=== PATIENT | male | born 1980 | race African-American/Black ===

== ENCOUNTER 2023-12-28 13:23 | Emergency (ER) | payer SELFPAY ==
--- NOTE | 2023-12-28 15:17 | RAD REPORT ---
EXAMINATION: Lumbar Spine 3 Views CLINICAL INDICATION: Back pain FINDINGS: No fracture or dislocation seen Moderate amount of stool within the colon
[2023-12-28] MEDS ORDERED: METHYLPREDNISOLONE 125 MG INJ ONE (16:00)
[2023-12-28] MEDS ORDERED: KETOROLAC 30 MG/ML INJ ONE ×2 (16:01→16:07)
--- NOTE | 2023-12-28 16:15 | EDPHYS ---
Physician Documentation [facility] Name: Chris Pratt Age: 43 yrs Sex: Male : 1980 Arrival Date: 12/28/2023 Time: 13:23 Bed 9 Private MD: ED Physician Diane Eduardo HPI: 12/27 16:12 This 43 yrs old Black Male presents to ER via Wheelchair with complaints of Low Back sp3 Pain. 16:12 43-year-old male with history of asthma and prior low back strain now presents to the 3 ED for low back pain across his entire lower back after lifting and playing with his dog. He denies any loss of bowel or bladder control, distal numbness or tingling, neurological symptoms, intra-abdominal pain, chest pain, shortness of breath, headache or any other signs or symptoms on ROS at this time.. Historical: - Allergies: 13:50 No Known Allergies; cm10 - Home Meds: 15:57 None [Active]; tl4 - PMHx: 13:50 Asthma; cm10 - PSHx: 13:50 None; cm10 - Immunization history:: Adult Immunizations up to date. - Infectious Disease History:: Denies. - Social history:: Smoking status: Patient/guardian denies using tobacco. ROS: 16:13 Constitutional: Negative for fever, chills, and weight loss, Eyes: Negative for injury, sp3 pain, redness, and discharge, ENT: Negative for injury, pain, and discharge, Neck: Negative for injury, pain, and swelling, Cardiovascular: Negative for chest pain, palpitations, and edema, Respiratory: Negative for shortness of breath, cough, wheezing, and pleuritic chest pain, Abdomen/GI: Negative for abdominal pain, nausea, vomiting, diarrhea, and constipation, : Negative for injury, bleeding, discharge, and swelling, MS/Extremity: Negative for injury and deformity, Skin: Negative for injury, rash, and discoloration, Neuro: Negative for headache, weakness, numbness, tingling, and seizure, Psych: Negative for depression, anxiety, suicide ideation, homicidal ideation, and hallucinations, Allergy/Immunology: Negative for hives, rash, and allergies, Endocrine: Negative for neck swelling, polydipsia, polyuria, polyphagia, and marked weight changes, Hematologic/Lymphatic: Negative for swollen nodes, abnormal bleeding, and unusual bruising, 16:13 All other systems are negative, Exam: 16:13 Constitutional: This is a well developed, well nourished patient who is awake, alert, sp3 and in no acute distress. Head/Face: Normocephalic, atraumatic. Eyes: Pupils equal round and reactive to light, extra-ocular motions intact. Lids and lashes normal. Conjunctiva and sclera are non-icteric and not injected. Cornea within normal limits. Periorbital areas with no swelling, redness, or edema. Neck: Trachea midline, no thyromegaly or masses palpated, and no cervical lymphadenopathy. Supple, full range of motion without nuchal rigidity, or vertebral point tenderness. No Meningismus. Chest/axilla: Normal chest wall appearance and motion. Nontender with no deformity. No lesions are appreciated. Cardiovascular: Regular rate and rhythm with a normal S1 and S2. No gallops, murmurs, or rubs. Normal PMI, no JVD. No pulse deficits. Respiratory: Lungs have equal breath sounds bilaterally, clear to auscultation and percussion. No rales, rhonchi or wheezes noted. No increased work of breathing, no retractions or nasal flaring. Abdomen/GI: Soft, non-tender, with normal bowel sounds. No distension or tympany. No guarding or rebound. No evidence of tenderness throughout. Skin: Warm, dry with normal turgor. Normal color with no rashes, no lesions, and no evidence of cellulitis. MS/ Extremity: Pulses equal, no cyanosis. Neurovascular intact. Full, normal range of motion. Neuro: Awake and alert, GCS 15, oriented to person, place, time, and situation. Cranial nerves II-XII grossly intact. Motor strength 5/5 in all extremities. Sensory grossly intact. Cerebellar exam normal. Normal gait. Psych: Awake, alert, with orientation to person, place and time. Behavior, mood, and affect are within normal limits. 16:13 Back: Pain to palpation along musculature of the lower back. No pain to the bones or step-offs noted., Vital Signs: 13:49 BP 134 / 82; Pulse 93; Resp 16; Temp 98.5; Pulse Ox 100% on R/A; Weight 105.23 kg; cm10 Height 5 ft. 8 in. ; Pain 10/10; 16:17 BP 129 / 77; Pulse 85; Resp 18; Temp 98.2(O); Pulse Ox 100% on R/A; Pain 8/10; tl4 13:49 Body Mass Index 35.28 (105.23 kg, 172.72 cm) cm10 13:49 Pain Scale: Adult cm10 16:17 Pain Scale: Adult tl4 MDM: 13:38 Medical Screening Exam initiated sp3 16:13 Data reviewed: vital signs, nurses notes, radiologic studies. ED course: 43-year-old sp3 male with low back pain. Considerations include muscle strain, disc disease, fascial strain, among others. X-ray demonstrates no bony abnormality or loss of vertebral disc heights. Will administer ketorolac and Solu-Medrol IM and discharge patient home on Flexeril and p.o. diclofenac. Follow-up with PCP as needed.. 12/27 14:05 Order name: Lumbar Spine (3 Views) XRAY; Complete Time: 15:52 sp3 Administered Medications: 16:00 Drug: MethylPREDNISolone Sodium Succinate IM 125 mg IM once Route: IM; Site: left tl4 ventrogluteal; 16:33 Follow up: Response: No adverse reaction tl4 16:11 Drug: Ketorolac IM 60 mg IM once Route: IM; Site: right ventrogluteal; tl4 16:33 Follow up: Response: No adverse reaction tl4 Disposition Summary: 12/28/23 16:15 Discharge Ordered Notes: Location: Home sp3 Condition: Stable sp3 Diagnosis - Muscle strain, low back pain sp3 Followup: sp3 - With: Private Physician - When: Upon discharge from the Emergency Department - Reason: Continuance of care Followup: sp3 - With: Brady Barron MD - When: Upon discharge from the Emergency Department - Reason: Recheck today's complaints Discharge Instructions: - Discharge Summary Sheet sp3 - Acute Back Pain, Adult sp3 Forms: - Medication Reconciliation Form sp3 - Antibiotic Education sp3 - Prescription Opioid Use sp3 - Patient Portal Instructions sp3 - Leadership Thank You Letter sp3 Prescriptions: - Cyclobenzaprine 10 mg Oral Tablet - take 1 tablet ORAL route every 8 hours As needed; 30 tablet; Refills: 0, sp3 Product Selection Permitted - Diclofenac Sodium 75 mg Oral Tablet Sustained Release - take 1 tablet ORAL route 2 times per day; 30 tablet; Refills: 0, Product sp3 Selection Permitted Signatures: Dispatcher [employer] Diane Bailey MD MD sp3 Radha Tilley RN RN cm10 Jhon Gao RN RN tl4
--- NOTE | 2023-12-28 16:15 | ER ---
Nurse's Notes [facility] Name: Chris Pratt Age: 43 yrs Sex: Male : 1980 Arrival Date: 12/28/2023 Time: 13:23 Bed 9 Private MD: Diagnosis: Muscle strain, low back pain Presentation: 12/27 13:49 Chief complaint: Patient states: Low back pain onset yesterday. Pt states that he was cm10 playing with his dog and lifting him up when the pain started. Pt reports having a previous lower back injury from 7 years ago and states that the pain feels the same. PT states that walking and movement make the pain worse. Coronavirus screen: Client denies travel out of the [place] in the last 14 days. Ebola Screen: Patient denies travel to an Ebola-affected area in the 21 days before illness onset. No symptoms or risks identified at this time. Initial Sepsis Screen: Does the patient meet any 2 criteria? HR > 90 bpm. Does the patient have a suspected source of infection? No. Patient's initial sepsis screen is negative. Risk Assessment: Do you want to hurt yourself or someone else? Patient reports no desire to harm self or others. Onset of symptoms was December 27, 2023. 13:49 Method Of Arrival: Wheelchair cm10 13:49 Acuity: GEOVANY 4 cm10 Triage Assessment: 13:51 General: Appears in no apparent distress. uncomfortable, Behavior is calm, cooperative. cm10 Pain: Complains of pain in low back area Pain does not radiate. Pain currently is 10 out of 10 on a pain scale. Quality of pain is described as sharp, shooting. Neuro: No deficits noted. Level of Consciousness is awake, alert, obeys commands, Oriented to person, place, time, situation, Appropriate for age. Historical: - Allergies: 13:50 No Known Allergies; cm10 - Home Meds: 15:57 None [Active]; tl4 - PMHx: 13:50 Asthma; cm10 - PSHx: 13:50 None; cm10 - Immunization history:: Adult Immunizations up to date. - Infectious Disease History:: Denies. - Social history:: Smoking status: Patient/guardian denies using tobacco. Screenin:51 [facility] ED Fall Risk Assessment (Adult) History of falling in the last 3 months, tl4 including since admission No falls in past 3 months (0 pts) Confusion or Disorientation No (0 pts) Intoxicated or Sedated No (0 pts) Impaired Gait No (0 pts) Mobility Assist Device Used No (0 pt) Altered Elimination No (0 pt) Score/Fall Risk Level 0 - 2 = Low Risk Oriented to surroundings, Maintained a safe environment, Educated pt \T\ family on fall prevention, incl call for assistance when getting out of bed, Assessed \T\ reinforced patient's understanding of fall precautions. Abuse screen: Denies threats or abuse. Denies injuries from another. Nutritional screening: No deficits noted. Tuberculosis screening: No symptoms or risk factors identified. Assessment: 15:57 General: Appears in no apparent distress. Behavior is calm, cooperative. Pain: tl4 Complains of pain in back. Neuro: Level of Consciousness is awake, alert, obeys commands, Oriented to person, place, time, situation, Moves all extremities. Full function. Cardiovascular: Denies chest pain, diaphoresis, fatigue, lightheadedness, nausea, palpitations, shortness of breath, syncope, vomiting, Capillary refill < 3 seconds Patient's skin is warm and dry. Respiratory: Airway is patent Respiratory effort is even, unlabored, Respiratory pattern is regular, symmetrical, Breath sounds are clear bilaterally. Denies shortness of breath. GI: No signs and/or symptoms were reported involving the gastrointestinal system. : No signs and/or symptoms were reported regarding the genitourinary system. EENT: No signs and/or symptoms were reported regarding the EENT system. Derm: No signs and/or symptoms reported regarding the dermatologic system. Musculoskeletal: Reports pain in back. Vital Signs: 13:49 BP 134 / 82; Pulse 93; Resp 16; Temp 98.5; Pulse Ox 100% on R/A; Weight 105.23 kg; cm10 Height 5 ft. 8 in. ; Pain 10/10; 16:17 BP 129 / 77; Pulse 85; Resp 18; Temp 98.2(O); Pulse Ox 100% on R/A; Pain 8/10; tl4 13:49 Body Mass Index 35.28 (105.23 kg, 172.72 cm) cm10 13:49 Pain Scale: Adult cm10 16:17 Pain Scale: Adult tl4 ED Course: 13:26 Patient arrived in ED. im 13:37 Diane Eduardo MD is Attending Physician. sp3 13:50 Triage completed. cm10 13:51 Arm band placed on left wrist. Patient placed in waiting room. cm10 14:43 Lumbar Spine (3 Views) XRAY In Process Unspecified. EDMS 15:51 Jhon Gao, RN is Primary Nurse. tl4 15:52 Patient has correct armband on for positive identification. Bed in low position. Call tl4 light in reach. Side rails up X 1. Adult w/ patient. Provided Education on: ed process, call guerra. Client placed on continuous cardiac and pulse oximetry monitoring. NIBP monitoring applied. Door closed. Noise minimized. Lights dimmed. Moved to private room. 15:57 No provider procedures requiring assistance completed. Patient did not have IV access tl4 during this emergency room visit. 16:14 Brady Barron MD is Referral Physician. sp3 Administered Medications: 16:00 Drug: MethylPREDNISolone Sodium Succinate IM 125 mg IM once Route: IM; Site: left tl4 ventrogluteal; 16:33 Follow up: Response: No adverse reaction tl4 16:11 Drug: Ketorolac IM 60 mg IM once Route: IM; Site: right ventrogluteal; tl4 16:33 Follow up: Response: No adverse reaction tl4 Medication: 15:51 VIS not applicable for this client. tl4 Outcome: 16:15 Discharge ordered by . sp3 16:18 Discharged to home via wheelchair, with family, tl4 16:18 Condition: stable 16:18 Discharge instructions given to patient, family, Instructed on discharge instructions, follow up and referral plans. medication usage, Demonstrated understanding of instructions, follow-up care, medications, Prescriptions given X 2, 16:33 Patient left the ED. tl4 Signatures: Dispatcher [employer] EDMS Diane Eduardo MD MD sp3 Meron Poe Clarissa, RN RN cm10 Jhon Gao RN RN tl4
[2023-12-28 17:12] VITALS: O2SAT 100
[2023-12-28 17:13] VITALS: BP 129/77; TEMP 98.2
== END 2023-12-28 16:33 | disposition home or self-care (01) ==
LOC: ER 13:23
DX: S39.012A Strain of muscle, fascia and tendon of lower back, initial encounter (principal)
CPT/HCPCS: 72100; 96372; 99284; J2919